=== PATIENT | female | born 1995 | race Caucasian/White ===

== ENCOUNTER → 2018-05-29 | Outpatient (CLI) | payer BC | LOC: COL.LAB 15:54 | DX: O28.8 Other abnormal findings on antenatal screening of mother (principal); R76.8 Other specified abnormal immunological findings in serum; Z3A.13 13 weeks gestation of pregnancy ==

== ENCOUNTER 2018-11-10 04:43 | Outpatient (CLI) | payer BC ==
[~2018-11-10] VITALS: Ht 172.7 cm; Wt 81.8 kg
--- NOTE | 2018-11-10 04:55 | NUR ---
0455- PT PRESENTS TO LDR COMPLAINING OF CONTRACTIONS, AMBULATORY TO ROOM LR6, CHANGED INTO GOWN. 0502- EFM X2 APPLIED. PT DENIES LEAKING FLUID, VAGINAL BLEEDING. STATES SHE IS FEELING THE BABY MOVE. 0515- SVE BY THIS NURSE . PLAN OF CARE DISCUSSED AND QUESTIONS ANSWERED. PT PROVIDED ORAL HYDRATION.
[2018-11-10 06:32] VITALS: BP 130/71; PULSE 76
--- NOTE | 2018-11-10 06:45 | NUR ---
0628- SVE unchanged, Discussed plan to discharge home, discussed discomforts of , and early labor instructions. Pt and deny questions. 0635- Discharge paperwork given and explained. 0645- Pt ambulates off unit independently with in stable condition.
== END 2018-11-10 06:45 | disposition home or self-care (01) ==
LOC: LDRO 04:43
DX: O62.9 Abnormality of forces of labor, unspecified (principal); Z3A.37 37 weeks gestation of pregnancy

== ENCOUNTER 2018-12-01 01:05 | Inpatient (IN) | payer BC ==
[~2018-12-01] VITALS: Ht 172.7 cm; Wt 84.1 kg
[2018-12-01] VITALS (19 sets, daily range): BP systolic 117–159; BP diastolic 57–78; PULSE 73–105; TEMP 97.8–98.8
--- NOTE | 2018-12-01 01:10 | NUR ---
G1L0. 40-3. Wheeled to LDR4 with spouse. Clean gown on. EFM and TOCO explained and applied. Pt states she has been having contractions all day but started every 2-5minutes about an hour ago. States she has had some vaginal spotting when she wiped. Denies LOF. Reports good movement. SVE 6/90/0 with bloody show noted. Pericare provided and pt repositioned to WL. Pt wanting an epidural. Vital signs taken. 0123: called and updated on pt. Admit orders received. See physican notification. 0130: Pt Requesting her epidural at this time. Ledy AGUILLON notified. 0137: IV started and labs obtained via IV site. LR bolus infusing without difficulties. 0157: Pt assisted to EOB. Difficulty tracing FHR due to maternal position. Pulse ox applied and tracing well. 0158: Ledy AGUILLON at bedside for epidural placement and procedure explained. 0204: Single shot administered by Farrah Evans CRNA at this time. See anesthesia records. 0208: Pt assisted to WL position per request. Plan of care and safety precautions explained to pt and who verbalize understanding. Call light within reach. Will continue to monitor.
[2018-12-01 01:49] LABS: BASO % 0.2 % (0.0-2.0); EOS % 0.1 % (0-4.0); GRAN # 13.5 (1.4-6.5); GRAN % 85.6 % (42.2-75.2); HEMOGLOBIN 13.6 g/dl (12.5-16.0); LYMPH # 1.2 (1.2-3.4); LYMPH % 7.9 % (20.0-51.0); MEAN CELL VOLUME 88 fl (80.0-100.0); MEAN CORPUSCULAR HEMOGLOBIN 30 pg (27.0-31.0); MEAN CORPUSCULAR HGB CONC 34 g/dl (33.0-37.0); MEAN PLATELET VOLUME 11.9 fl (7.4-10.4); MONO # 0.9 (0.1-0.6); MONO % 5.7 % (1.7-9.3); PLATELET COUNT 249 K/mm3 (130-400); RED BLOOD COUNT 4.57 M/mm3 (4.10-5.30); REDCELL DISTRIBUTION WIDTH-CV 13.2 % (11.5-14.5)
--- NOTE | 2018-12-01 02:22 | NUR ---
RN at bedside FHR deceleration noted down to 85bpm at lowest point, lasting 260seconds with spontaneous brief returns to baseline. Pt repositioned from WL to right lateral position with no return to baseline. Oxygen administered via oxymask at 10L, LR bolus infusing. SVE 9/100/0 with bulgy bag and scalp stem noted on exam. 0227: Spontaneous return of FHR to baseline of 145bpm. 0232: called and updated on pts status. See physican notification. 0249: at bedside for AROM. AROM explained and completed by at this time, moderate amount of meconium fluid noted. 0254: Straight catheratization done at this time. 200mls of clear/yellow fluid noted. FHR reactive and oxygen off. 0300: SVE C/+2 per . Practice push completed at this time with provider. FHR deceleration noted down to 85bpm with pushing. Oxygen reapplied and scalp stem performed by . remains at bedside pushing with pt and reviewing FHR strip. Variable deceleration noted with pushing. 0332: Pt assisted into footplates and continues pushing with . 0335: Spontaneous delivery of infant's head by following spontaneous vaginal delivery of viable female infant by . Infant to chest where stimulated and dried per provider and nursery RN, Martha. Cord clamped X2 and cut. to mothers chest and care assumed by Martha, AKHIL. 0338: Spontaneous delivery of intact placenta by . Pitocin started at 333mus/hr per protocol. Second degree laceration repaired by . Pericare provided, pads changed, ice pack applied and pt repositioned in bed. Plan of care and safety precautions explained to pt and who verbalize understanding. See doctor dications and ansesthesia records. 0420: Fundus boggy with fundal message with firming of fundus during message, handful of tiny clots noted on message. 0425: notified and orders received. See physican notification. 0435: Plan of care and new orders explained to pt and who verbalize understanding. Methergine 0.2mg administered in left upper thigh. Cytotec 800mg administered RC without difficulties. Will continue to monitor closely.
[2018-12-01] MEDS ORDERED: PRENATAL MVI PO (02:36)
[2018-12-01] MEDS ORDERED: TYLENOL 325MG325 MG PO (02:37)
--- NOTE | 2018-12-01 06:00 | NUR ---
Pt able to hold legs up bilaterally but received second bag of pitocin still for bleeding. Pt assisted to bedpan but unable to void. Straight catherization performed at this time with 375mls of clear/yellow urine noted. Pericare provided. Mesh panties, pad, and ice pack applied and bed pad changed. Plan of care explained to pt and who verbalize understanding.
--- NOTE | 2018-12-01 06:45 | NUR ---
Rests in bed, alert. Pad changed. Denies wanting any pain medication at this time.
--- NOTE | 2018-12-01 07:45 | NUR ---
Ambulates to the bathroom. Voids moderate amount of clear yellow urine. Ambulates to room 208, tolerates well. Denies any needs at this time.
--- NOTE | 2018-12-01 09:00 | NUR ---
Rests in bed, alert. Denies any needs at this time.
--- NOTE | 2018-12-01 12:00 | NUR ---
Rests in bed, alert. Denies any needs at this time.
[2018-12-02 08:25] VITALS: BP 128/79; PULSE 86; TEMP 97.8
[2018-12-02] MEDS ORDERED: IBU800 M1 PO (08:51)
--- NOTE | 2018-12-02 10:19 | NUR ---
Initial visit; Mom using telephone, Lift Slab Operator offered congratulations for the of their daughter and offered God's blessings.
== END 2018-12-02 11:45 | disposition home or self-care (01) | DRG 807 ==
LOC: LDRO 01:05 → LDR 01:29 → OB 07:45
PROVIDERS: Obstetrics & Gynecology; ADMIT Student in an Organized Health Care Education/Training Program
PROC: 10E0XZZ Delivery of Products of Conception, External Approach (ICD-10-PCS; principal; 2018-12-01)
PROC: 0KQM0ZZ Repair Perineum Muscle, Open Approach (ICD-10-PCS; 2018-12-01)
DX: O48.0 Post-term pregnancy (principal); Z37.0 Single live birth; O26.893 Other specified pregnancy related conditions, third trimester; Z67.41 Type O blood, Rh negative; Z3A.40 40 weeks gestation of pregnancy; O70.1 Second degree perineal laceration during delivery; O77.0 Labor and delivery complicated by meconium in amniotic fluid
CPT/HCPCS: J2210; J2590; J2791; J2795; J7120